=== PATIENT | male | born 1995 | race Caucasian/White ===

== ENCOUNTER 2024-03-08 15:54 | Outpatient (CLI) | payer MEDICAID ==
[~2024-03-08 15:54] MED LIST: MOT200T PO
== END 2024-03-08 23:59 | disposition home or self-care (01) ==
LOC: RAD 15:54
PROVIDERS: ATTEND Nurse Practitioner
DX: M25.512 Pain in left shoulder (principal)
CPT/HCPCS: 73030

== ENCOUNTER 2024-04-30 14:27 | Outpatient (CLI) | payer MEDICAID | END 2024-04-30 23:59 | disposition home or self-care (01) | LOC: RAD 14:27 | PROVIDERS: ATTEND Nurse Practitioner Family | DX: K82.4 Cholesterolosis of gallbladder (principal); K40.20 Bilateral inguinal hernia, without obstruction or gangrene, not specified as recurrent; R17 Unspecified jaundice; Z98.890 Other specified postprocedural states | CPT/HCPCS: 76700; 76705 ==

== ENCOUNTER 2024-12-07 15:38 | Emergency (ER) | payer MEDICAID ==
[~2024-12-07] VITALS: Ht 175.3 cm; Wt 52.5 kg
[2024-12-07 15:45] VITALS: BP 133/80; PULSE 125
[2024-12-07] MEDS ORDERED: ketorolac trometh 15mg/ml vial 15 MG/ML ML IM ONE (16:15)
[2024-12-07] MEDS ORDERED: iohexol 300mg/ml 100ml inj. ONE (16:21)
[2024-12-07] MEDS: LORazepam 1 MG tablet PO ONE (17:15)
[2024-12-07] MEDS: ketorolac trometh 15mg/ml vial 15 MG/ML ML IV ONE (17:35)
[2024-12-07 17:41] LABS: BASOPHILS % (AUTO) 0.5 % (0-1); EOSINOPHILS # (AUTO) 0.2 X10'3 (0-0.9); EOSINOPHILS % (AUTO) 2.1 % (0-6); HEMATOCRIT 36.9 % (42.0-52.0); HEMOGLOBIN 12.7 g/dl (14.0-17.9); LYMPHOCYTES # (AUTO) 1.2 X10'3 (1.1-4.8); LYMPHOCYTES % (AUTO) 15.3 % (21-51); MEAN CORPUSCULAR HEMOGLOBIN 31.4 PG (27.0-31.0); MEAN CORPUSCULAR HGB CONC 34.3 g/dL (33.0-36.5); MEAN CORPUSCULAR VOLUME 91.5 FL (78-98); MEAN PLATELET VOLUME 8.4 FL (7.4-10.4); MONOCYTES # (AUTO) 0.6 X10'3 (0-0.9); MONOCYTES % (AUTO) 7.4 % (2-12); NEUTROPHILS # (AUTO) 5.9 X10'3 (1.8-7.7); NEUTROPHILS % (AUTO) 74.7 % (42-75); PLATELET COUNT 135 X10'3 (140-440); RED BLOOD COUNT 4.04 X10'6 (4.70-6.10); RED CELL DISTRIBUTION WIDTH 12.8 % (11.5-14.5); WHITE BLOOD COUNT 7.9 X10'3 (4.5-11.0)
[2024-12-07 18:06] LABS: ALANINE AMINOTRANSFERASE 35 U/L (12-78); ALBUMIN/GLOBULIN RATIO 1.6 (1.1-1.5); ALKALINE PHOSPHATASE 67 IU/L (46-116); ANION GAP 7 (8-16); ASPARTATE AMINO TRANSFERASE 15 U/L (10-37); BILIRUBIN,TOTAL 1.4 MG/DL (0.1-1.0); BLOOD UREA NITROGEN 14 MG/DL (7-18); BUN/CREATININE RATIO 20.6 (10.0-20.0); CALCIUM 8.4 MG/DL (8.5-10.1); CHLORIDE 101 MMOL/L (99-107); CREATININE 0.68 MG/DL (0.60-1.10); GLUCOSE 102 MG/DL (70-104); SODIUM 134 MMOL/L (135-145); TOTAL CARBON DIOXIDE 26.2 MMOL/L (24-32); TOTAL PROTEIN 6.5 G/DL (6.4-8.2); eCRCL 121 ML/MIN; eGFR > 90 ML/MIN
[2024-12-07 18:49] LABS: BILIRUBIN,URINE NEGATIVE (Neg); CLARITY,URINE CLEAR (Clear); COLOR,URINE YELLOW (Yellow); GLUCOSE, URINE NEGATIVE (Neg); KETONES,URINE NEGATIVE (Neg); LEUKOCYTE ESTERASE ,URINE NEGATIVE (Neg); NITRITES, URINE NEGATIVE (Neg); OCCULT BLOOD,URINE SMALL (Neg); PH,URINE 6.5 (4.8-8.0); PROTEIN,URINE NEGATIVE (Neg); UA COLLECTION TYPE CLN CATCH MIDSTREAM; UROBILINOGEN,URINE 0.2 E.U/dL (0.2-1.0)
[2024-12-07] MEDS ORDERED: HYDR-3965 PO (18:51)
[2024-12-07 18:58] LABS: BACTERIA,URINE NONE SEEN /HPF (Neg); SQUAMOUS EPITHELIAL CELL,UR NONE SEEN /LPF (FEW); WBC,URINE 0-4 /HPF (0-4)
[2024-12-07 19:05] VITALS: RESP 16; TEMP 98; O2SAT 100
== END 2024-12-07 19:25 | disposition home or self-care (01) ==
LOC: ER 15:39
DX: R31.0 Gross hematuria (principal); S39.94XA Unspecified injury of external genitals, initial encounter; W22.8XXA Striking against or struck by other objects, initial encounter; Y93.51 Activity, roller skating (inline) and skateboarding; Y92.89 Other specified places as the place of occurrence of the external cause; Y99.8 Other external cause status
CPT/HCPCS: 36415; 74177; 80053; 81001; 85025; 96374; 99285; J1885; Q9967

== ENCOUNTER 2025-06-05 19:49 | Emergency (ER) | payer MEDICAID ==
[~2025-06-05] VITALS: Ht 175.3 cm; Wt 41.6 kg
[2025-06-05 20:02] VITALS: BP 116/64; PULSE 100; RESP 15; O2SAT 99
--- NOTE | 2025-06-05 21:56 | Physician Documentation ---
History of Present Illness ~ Chief Complaint: Leg Pain Stated Complaint: LEFT LEG PAIN Time Seen by MD: 21:24 Primary Medical Doctor: DR GARRET MERINO Patient is seen today with complaints of pain of his left calf after fly fishing earlier today. Patient is concerned for a possible blood clot because his mother used to have blood clots. Patient states he does smoke tobacco. Patient denies any swelling in his left leg. He has no other concern or complaint at this time. Tetanus witin 5 years: Yes Medication Reconciliation Allergies: Coded Allergies: No Known Allergies (Unverified , 06/05/25) Scheduled Ibuprofen* (Motrin*), 400 MG PO PRN, (Reported) Past Medical History Past Medical History: No Pertinent History Past Surgical History: no surgical history Alcohol Use: None Drug Use: none Lives with: Mother Lives In: Home Occupation: student Review of Systems Constitutional: Denies: chills, fever, weakness Eyes: Denies: pain, blurred vision ENT: Denies: ear pain, nose pain, throat pain, mouth pain Respiratory: Denies: cough, shortness of breath Cardiovascular: Denies: chest pain, palpitations Gastrointestinal: Denies: abdominal pain, nausea, vomiting Genitourinary: Denies: burning, dysuria Male Genitalia: Denies: penile discharge, testicular pain Neurological: Denies: headache, dizziness Musculoskeletal: Denies: pain, swelling Integumentary: Denies: rash, lesions Allergic/Immunologic: Denies: hives, itching Hematologic/Lymphatic: Denies: no symptoms reported Psychiatric: Denies: depression, anxiety Physical Exam Vital Signs: Temperature: 97.6, Source: Temporal, Heart Rate: 100, Respiratory Rate: 15, BP: 116/64, Pulse Oximetry: 99, Weight: 41.650 Physical Exam General: Awake and Alert, no acute distress. HEENT: Conjunctiva pink, Sclera clear, Mucus Membranes moist. Neck: Supple without masses and tenderness. Resp: Unlabored. Lungs clear to auscultation bilaterally. Heart: Regular Rate and rhythm, normal S1 and S2 without murmur, rub or gallop. Musculoskeletal: Patient on exam has absolutely no pitting edema of the lower extremities bilaterally. Patient does have superficial tenderness to palpation of the left medial calf. Negative Homans sign, neurovascularly intact distally of the bilateral lower extremities. Motor function and strength intact distally. Extremities: No cyanosis,clubbing or edema. Skin: Warm and Dry. Progress Results/Orders Results/Orders Vital Signs 06/05/25 20:02 Temp 97.6 Pulse 100 Resp 15 B/P (MAP) 116/64 Pulse Ox 99 Medical Decision Making Findings Patient is seen today with complaints of pain of his left calf after fly fishing earlier today. Patient is concerned for a possible blood clot because his mother used to have blood clots. Patient states he does smoke tobacco. Patient denies any swelling in his left leg. He has no other concern or complaint at this time. After history and physical exam that were very benign, I do not feel vascular ultrasound is prudent or necessary at this time. Patient will monitor closely for any changes. Patient will return to ED with any worsening, concerning or changing symptoms. I strongly advised patient discontinue smoking. Patient voiced understanding and is in agreement to the plan. Departure Disposition: HOME / SELF CARE / HOMELESS Impression: Primary Impression: Muscle strain Condition: Improved Discharge Instructions: Muscle Strain, [id number] Additional Instructions: After history and physical exam that were very benign, I do not feel vascular ultrasound is prudent or necessary at this time. Patient will monitor closely for any changes. Patient will return to ED with any worsening, concerning or changing symptoms. I strongly advised patient discontinue smoking. Patient voiced understanding and is in agreement to the plan. Referrals: NO PRIMARY CARE PROVIDER (PCP) Signature Scribe Signature: No scribe Attestation: No scribe HAILEY BENAVIDEZ PAC Jun 05, 2025 21:56
[2025-06-05 22:04] VITALS: TEMP 97.6
== END 2025-06-05 22:05 | disposition home or self-care (01) ==
LOC: ER 19:49
DX: S86.912A Strain of unspecified muscle(s) and tendon(s) at lower leg level, left leg, initial encounter (principal); X58.XXXA Exposure to other specified factors, initial encounter; Y93.89 Activity, other specified; Y92.89 Other specified places as the place of occurrence of the external cause; Y99.8 Other external cause status
CPT/HCPCS: 99282

== ENCOUNTER 2025-07-04 11:32 | Emergency (ER) | payer MEDICAID ==
[~2025-07-04] VITALS: Ht 175.3 cm; Wt 50.9 kg
[2025-07-04 11:37] VITALS: TEMP 97.8
--- NOTE | 2025-07-04 12:57 | RADIOLOGY REPORT ---
Indication: testicular pain Technique: Real-time ultrasound images through the scrotum. Comparison: None Findings: Right testicle measures 4.9 cm. It has normal echogenicity and echotexture, with no focal solid or c ystic mass. There is normal flow on color Doppler, with normal waveforms. The right epididymal head m easures 1. cm, and has no focal masses. Left testicle measures 4.6 cm. It has normal echogenicity and echotexture, with no focal solid or cy stic mass. There is normal flow on color Doppler, with normal waveforms. The left epididymal head boyd sures 1.2 cm, and has no focal masses. Small left hydrocele. Left varicocele measuring up to 3 mm in diameter. Impression: Left varicocele. Small left hydrocele.
--- NOTE | 2025-07-04 14:11 | Physician Documentation ---
History of Present Illness ~ Chief Complaint: Testicular Pain Stated Complaint: GROIN PAIN Time Seen by MD: 12:50 Primary Medical Doctor: DR COMBS HPI 29-year-old male that presents to the emergency department for evaluation of pain to the left testy. Worsening he has had a lump on his testicle for several years now has a has a history of a previous inguinal hernia repair with mesh. Reports that this morning he woke up without the lump that he normally has but with pain in the left teste. Patient denies nausea vomiting diarrhea or fever. Denies any radiation of the pain. Medication Reconciliation Allergies: Coded Allergies: No Known Allergies (Unverified , 07/04/25) Scheduled Ibuprofen* (Motrin*), 400 MG PO PRN, (Reported) Past Medical History Past Medical History: No Pertinent History Past Surgical History: no surgical history Alcohol Use: None Drug Use: none Lives with: Mother Lives In: Home Occupation: student Review of Systems ROS As stated above in the HPI, otherwise all systems are reviewed and negative. Physical Exam Vital Signs: Temperature: 97.8, Source: Temporal, Heart Rate: 69, Respiratory Rate: 18, BP: 110/72, Pulse Oximetry: 100, Weight: 50.850 Physical Exam VITALS: Reviewed and as above. GENERAL: Alert, no apparent distress. HEENT: Normocephalic, atraumatic, PERRL, EOMI, dry mucosa, no erythema CV: Regular rate, rhythm, no edema, no murmur, No: JVD GI: Soft, non-tender, bowels sounds present, no rebound, guarding, or rigidity : left testiculrtenderness with palpation, no edema BACK: No CVA tenderness, or swelling MUSCULOSKELETAL No deformities, no edema SKIN: Warm and dry, no rash NEURO: Oriented x4, No motor or sensory deficit PSYCH: Normal mood and affect, no agitation Progress Results/Orders Results/Orders Vital Signs 07/04/25 11:37 Temp 97.8 Pulse 69 Resp 18 B/P (MAP) 110/72 Pulse Ox 100 Medical Decision Making Findings Patient presenting with ledt testicular pain without swelling. Differential included UTI, pyelonephritis, diverticulitis, nephrolithiasis, appendicitis, cholangitis_. Also considered but less likely given history and physical exam included constipation, bowel perforation, gastritis, pancreatitis, mesenteric ischemia, genital torsion. Negative findings confirmed with ultrasound. Follow up with PMD this week and possible need for follow up with Urology. Return precautions given. Urinary Diff Dx:Considerations: Include: AAA, Aortic dissection, Appendicitis, Appendicitis train, Bowel obstruction, Bladder outlet obstruc., Cholelithiasis, Choleangitis, Cholecystitis, DJD, Epididymitis, Hepatitis, HNP, Impaction, Musculoskeletal pain, Pancreatitis, Postoperative Comp., Prostatitis, Pyelonep hritis, Renal failure, Renal infarction, Strain, Urolithiasis, Urinary Obstruction, Urethritis, Urinary retention, UTI, Other Genital Diff Dx:Considerations: Include: Abscess, Balanitis, Balanoposthitis, Cellulitis, Epididymitis, Entrapment injury, Carla's gangrene, Foreign body, Facture penis, Hydrocele, Inguinal hernia, Post-op Complication, Paraphimosis, Prostatitis, Priapism, Syphilis, Testicular torsion, Torsion-epididymis, Torsion-appendiceal, Urinary retention, Urethritis, Urethritis-chlamydial, Urethritis-gonococcal, UTI, Other Departure Disposition: 01 HOME / SELF CARE / HOMELESS Impression: Primary Impression: Pain in testicle Condition: Stable Additional Instructions: Resides or pain in her left testicle. Findings are negative for anything emergent at this time. Please follow up with your primary care provider and urology. Return to the nurse tried you develop any swelling increase in pain fevers, burning with urination or any difficulty urinating. Referrals: NO PRIMARY CARE PROVIDER (PCP) Education Educated: Patient Educated regarding: treatment, need for follow up ASHWIN WARNER Jul 04, 2025 14:11
[2025-07-04 14:25] VITALS: BP 128/98; PULSE 96; RESP 14; O2SAT 98
== END 2025-07-04 14:26 | disposition home or self-care (01) ==
LOC: ER 11:33
DX: N50.812 Left testicular pain (principal)
CPT/HCPCS: 76870; 93976; 99284